=== PATIENT | female | born 1985 ===

== ENCOUNTER 2016-07-31 18:35 | Emergency (ER) | payer OTHER ==
[2016-07-31 18:35] VITALS: BMI 28.9
--- NOTE | 2016-07-31 19:39 | C.PDOC ---
History Of Present Illness Patient presents to the ED complaining of vaginal spotting that began this morning. She also complains of lower abdominal cramping. Patient is 4 weeks ; 2 para 1. Patient denies fever, nausea, vomiting, diarrhea, urinary symptoms, or back pain. Time Seen by Provider: 07/31/16 19:39 Chief Complaint (Nursing): Female Genitourinary History Per: Patient History/Exam Limitations: no limitations Onset/Duration Of Symptoms: Hrs (this morning) Current Symptoms Are (Timing): Still Present Severity: Mild Pain Scale Rating Of: 3 Quality Of Discomfort: Cramping, "Pain" Alleviating Factors: None Recent travel outside of the [place]: No Additional History Per: Patient Abnormal Vaginal Bleeding: Yes : 2 Para: 1 Past Medical History Reviewed: Historical Data, Nursing Documentation, Vital Signs Vital Signs: Last Vital Signs Temp 98.2 F 07/31/16 18:45 Pulse 80 07/31/16 18:45 Resp 18 07/31/16 18:45 BP 121/82 07/31/16 18:45 Pulse Ox 98 07/31/16 20:35 Family History: States: Unknown Family Hx - Social History Hx Tobacco Use: No Hx Alcohol Use: No Hx Substance Use: No - Immunization History Hx Tetanus Toxoid Vaccination: No Hx Influenza Vaccination: No Hx Pneumococcal Vaccination: No Review Of Systems Constitutional: Negative for: Fever Gastrointestinal: Positive for: Abdominal Pain (suprapubic). Negative for: Nausea, Vomiting, Diarrhea Genitourinary: Positive for: Vaginal Bleeding (spotting). Negative for: Dysuria Physical Exam - Physical Exam Appears: Non-toxic, No Acute Distress Skin: Warm, Dry Head: Atraumatic, Normacephalic Eye(s): bilateral: PERRL, EOMI Oral Mucosa: Moist Neck: Supple Chest: Symmetrical Cardiovascular: Rhythm Regular Respiratory: No Rales, No Rhonchi, No Wheezing Gastrointestinal/Abdominal: Soft, Tenderness (suprapubic), No Guarding, No Rebound Back: No CVA Tenderness Extremity: Bilateral: Atraumatic, Normal Color And Temperature Neurological/Psych: Oriented x3 ED Course And Treatment - Laboratory Results Result Diagrams: 07/31/16 19:45 07/31/16 19:45 O2 Sat by Pulse Oximetry: 98 (RA) Pulse Ox Interpretation: Normal Progress Note: Plan: Labs, Macrobid, IV fluids, Pelvis US Reevaluation Time: 21:49 Reassessment Condition: Improved Medical Decision Making Medical Decision Making: Upon provider reevaluation patient is feeling better, is medically stable, and requires no further treatment in the ED at this time. Patient will be discharged home with Rx for . Counseling was provided and all questions were answered regarding diagnosis and need for follow up with the referred clinic. There is agreement to discharge plan. Return if symptoms persist or worsen. Disposition Counseled Patient/Family Regarding: Studies Performed, Diagnosis, Need For Followup - Disposition Referrals: [facility] [Outside] Disposition: HOME/ ROUTINE Disposition Time: 19:39 Condition: FAIR Additional Instructions: Please repeat the HCG in 5-7 days Instructions: Threatened Miscarriage (ED) - Clinical Impression Clinical Impression: Threatened - Scribe Statement The provider has reviewed the documentation as recorded by the Scribe Mary Morales Provider Attestation: All medical record entries made by the Scribe were at my direction and personally dictated by me. I have reviewed the chart and agree that the record accurately reflects my personal performance of the history, physical exam, medical decision making, and the department course for this patient. I have also personally directed, reviewed, and agree with the discharge instructions and disposition.
[2016-07-31] MEDS ORDERED: Sodium Chloride 0.9% 1,000 ML IV ONE (19:40)
[2016-07-31 19:49] LABS: BASO # 0.1 K/uL (0.0-0.2); BASO % 0.7 % (0.0-2.0); EOS # 0.1 K/uL (0.0-0.7); EOS % 1.3 % (0.0-4.0); HEMATOCRIT 38.4 % (34.0-47.0); LYMPH # 2.7 K/uL (1.0-4.3); LYMPH % 25.5 % (20.0-40.0); MEAN CELL VOLUME 95.6 fL (81.0-99.0); MEAN CORPUSCULAR HEMOGLOBIN 31.6 pg (27.0-31.0); MEAN PLATELET VOLUME 10.4 fL (7.2-11.7); MONO # 0.7 K/uL (0.0-0.8); MONO % 6.3 % (0.0-10.0); RED CELL DISTRIBUTION WIDTH 13.7 % (11.5-14.5); WHITE BLOOD COUNT 10.5 K/uL (4.8-10.8)
[2016-07-31 20:06] LABS: RBC URINE 76 /hpf (0-3); URINE BILIRUBIN NEGATIVE (NEGATIVE); URINE BLOOD 3+ (NEGATIVE); URINE COLOR Yellow (YELLOW); URINE GLUCOSE (UA) NORMAL (Normal); URINE KETONE NEGATIVE (NEGATIVE); URINE LEUKOCYTE ESTERASE TRACE Leu/uL (Negative); URINE PROTEIN NEGATIVE (NEGATIVE); URINE UROBILINOGEN NORMAL mg/dL (0.2-1.0); WBC URINE 9 /hpf (0-5)
[2016-07-31 20:07] LABS: CHLORIDE 100 mmol/L (98-107); SODIUM 138 mmol/L (132-148)
[2016-07-31 20:08] LABS: POTASSIUM 3.9 mmol/L (3.6-5.2)
[2016-07-31 20:10] LABS: ALB/GLOB RATIO 1.3 (1.0-2.1); ALKALINE PHOSPHATASE 55 U/L (38-126); ALT/SGPT 17 U/L (9-52); AST/SGOT 23 U/L (14-36); BILIRUBIN,TOTAL 0.2 mg/dL (0.2-1.3); BLOOD UREA NITROGEN 12 mg/dL (7-17); CARBON DIOXIDE 25 mmol/L (22-30); GFR AFRICAN-AMERICAN > 60; GLUCOSE,RANDOM 96 mg/dL (65-105); TOTAL PROTEIN 6.8 g/dL (6.3-8.3)
[2016-07-31 20:11] LABS: CALCIUM 8.7 mg/dl (8.6-10.4)
[2016-07-31 22:15] VITALS: BP 106/69; PULSE 68; RESP 17; TEMP 98.3; O2SAT 100
--- NOTE | 2016-08-01 09:21 | US ---
Pelvic ultrasound History: Pelvic pain. . Comparison: None available. Technique: Real-time sonography was performed through the pelvis utilizing transabdominal and transvaginal technique. Findings: LMP of 06/25/2016. Uterus: 8.5 x 4.0 x 5.2 centimeters. Anteverted. No discrete intrauterine identified. Endometrium measures 7 millimeters, within normal limits. Cervix measures 2.9 centimeters, within normal limits. No free fluid in the pelvic cul-de-sac. Right ovary: 3.1 x 1.7 x 3.3 centimeters. Normal flow. Left ovary: 2.3 x 1.2 x 2.1 centimeters. Normal flow. Impression: LMP of 06/25/2016 Endometrium demonstrates no evidence of intrauterine . Correlation with beta HCG level. In the setting of a positive test, these findings may represent an early versus missed versus ectopic . Clinical correlation. Limited 1st trimester ultrasound for viability purposes only. Continued interval followup with serial ultrasound, serial HCG levels, and gynecological consultation would be helpful if clinically indicated. These findings were preliminarily reported at 9:45 p.m. on 07/31/[address] Dustin Rangel from [employer].
== END 2016-07-31 22:17 | disposition home or self-care (01) ==
LOC: C.ER 18:35
DX: O20.0 Threatened abortion (principal); Z3A.01 Less than 8 weeks gestation of pregnancy
CPT/HCPCS: 76830; 76856; 80053; 81001; 84702; 85025; 85610; 85730; 86850; 86900; 96360; 99284; J7040

== ENCOUNTER 2018-07-06 23:28 | Emergency (ER) | payer SELFPAY, OTHER | END 2018-07-07 02:02 | disposition home or self-care (01) | LOC: C.ER 23:28 ==